=== PATIENT | male | born 1970 | race Caucasian/White ===

== ENCOUNTER → 2018-09-21 10:31 | Outpatient (CLI) | payer OTHER, SELFPAY ==
--- NOTE | 2018-09-21 10:47 | DI.CT.S_ITS ---
PROCEDURE: CT ABDOMEN PELVIS WO/W CON INDICATIONS: LEFT FLANK PAIN TECHNIQUE: Optional 5 mm thick noncontrast images acquired from the diaphragm to the symphysis pubis. After the administration of intravenous contrast, 5 mm thick images acquired from the diaphragm to the symphysis pubis after a 10-minute delay. 2 mm thick coronal and sagittal reformats were then performed of the kidneys and ureters. For radiation dose reduction, the following was used: automated exposure control, adjustment of mA and/or kV according to patient size. COMPARISON: [facility], CR, KUB, 08/18/2012, 8:23. [facility], CR, KUB XRAY (1 VIEW ABDOMEN), 07/26/2012, 14:50. FINDINGS: Image quality: Excellent. Lung bases: Bibasilar dependent atelectasis. Heart size is normal. Tiny hiatal hernia. Urinary system: There is a 7 mm stone in the mid left ureter causing moderate left hydronephrosis and hydroureter proximal to the stone. There is a 3 mm stone in the left renal pelvis. A 4 mm stone is seen in the right kidney. No right hydronephrosis. Both kidneys are normal in size. Mild left perinephric fat stranding. There is normal bilateral renal enhancement. Left renal pelvicalyceal system is dilated. Renal calyces appear normal in morphology when filled with contrast. Opacified portions of right ureter demonstrates normal caliber. Bladder wall thickness is normal. No calcified bladder stones. Enlarged prostate. Other solid organs: Liver is normal in size and enhancement. Gallbladder is normal. Biliary system is non dilated. Pancreas enhances normally. Spleen is normal in size and enhancement. No adrenal nodules. Peritoneum and bowel: Bowel loops demonstrate normal wall thickness and caliber. There are scattered colonic diverticula. No active diverticulitis. No free fluid or air. Nodes and vessels: No retroperitoneal or mesenteric adenopathy by size criteria. Aorta and inferior vena cava are normal in size. Abdominal wall: No ventral hernias. Pelvis: No pathologic free pelvic fluid. No inguinal hernias or adenopathy. Bones: No suspicious bony lesions. No vertebral body compression fractures. Mild degenerative disc disease in lumbar spine. IMPRESSION: 1. There is a 7 mm obstructive stone in the mid left ureter causing moderate left hydronephrosis. 2. Nephrolithiasis bilaterally with additional nonobstructive renal calculi. 3. Diverticulosis without acute diverticulitis. 4. Enlarged prostate. Dictated by: Joce Metz M.D. on 09/21/2018 at 11:16 Approved by: Joce Metz M.D. on 09/21/2018 at 11:25
== END ==
PROVIDERS: PCP Family Medicine; Visit Provider Family Medicine
DX: N13.2 Hydronephrosis with renal and ureteral calculous obstruction (principal); R10.9 Unspecified abdominal pain; K57.90 Diverticulosis of intestine, part unspecified, without perforation or abscess without bleeding; N40.0 Benign prostatic hyperplasia without lower urinary tract symptoms
CPT/HCPCS: 74178; Q9967

== ENCOUNTER → 2018-11-22 16:04 | Outpatient (CLI) | payer OTHER, SELFPAY ==
--- NOTE | 2018-11-22 | DI.RAD.S_ITS ---
PROCEDURE: XR KUB INDICATIONS: kidney stones TECHNIQUE: One view of the abdomen acquired. COMPARISON: [facility], CR, XR ABDOMEN 1 VIEW, 11/17/2018, 10:08. [facility], CR, KUB XRAY (1 VIEW ABDOMEN), 07/26/2012, 14:50. FINDINGS: Surgical changes and devices: None. Bowel: Bowel gas pattern is normal. Soft tissues: Previously seen left abdominal calcification is not well-visualized on the current study, however there is a large amount of stool projecting over the lower abdomen Bones: No suspicious bony lesions. IMPRESSION: Previous identified mid left ureteral calculus not well-seen on the current examination. Unclear if this is related to large amount of overlying stool or interval resolution. Further assessment with CT KUB could be performed as clinically warranted. Dictated by: Richard Tucker M.D. on 11/22/2018 at 17:23 Approved by: Richadr Tucker M.D. on 11/22/2018 at 17:26
== END ==
PROVIDERS: PCP Family Medicine; Visit Provider Specialist
DX: N20.1 Calculus of ureter (principal); N20.0 Calculus of kidney
CPT/HCPCS: 74018

== ENCOUNTER → 2019-01-19 08:07 | Outpatient (CLI) | payer OTHER, SELFPAY ==
--- NOTE | 2019-01-19 | DI.RAD.S_ITS ---
PROCEDURE: XR KUB INDICATIONS: Calculus of kidney TECHNIQUE: One view of the abdomen acquired. COMPARISON: [facility], CR, XR KUB, 11/22/2018, 16:20; 11/17/2018. CT KUB 11/04/2018. FINDINGS: Surgical changes and devices: None. Bowel: Unremarkable bowel gas pattern. Soft tissues: The previously seen 9 mm calculus at the mid left ureter visualized on prior CT KUB and abdominal radiograph 11/17/2018 is not definitely seen. Visualized solid organ contours appear normal in size. Bones: No suspicious bony lesions. IMPRESSION: Prior mid-left ureter obstructing kidney stone is not definitely seen. Consider CT KUB for further evaluation if the stone has not passed per urethra. Dictated by: Dorian Kaminski M.D. on 01/19/2019 at 9:19 Approved by: Dorian Kaminski M.D. on 01/19/2019 at 9:24
== END ==
PROVIDERS: PCP Family Medicine; Visit Provider Specialist
DX: N20.0 Calculus of kidney (principal)
CPT/HCPCS: 74018